=== PATIENT | male | born 1940 | race Two or more races ===

== ENCOUNTER 2019-02-27 02:30 | Emergency (ER) | payer OTHER ==
[~2019-02-27] VITALS: Ht 167.6 cm; Wt 99.8 kg
[2019-02-27] MEDS ORDERED: cloNIDine HCL 0.1 MG TAB ONE (02:40)
[2019-02-27] MEDS ORDERED: cloNIDine HCL 0.1 MG TAB PO ONE (02:45)
[2019-02-27] MEDS ORDERED: LIDOCAINE 2% (LOCAL ANESTH.) PF 5ml SDV ONE (08:12)
[2019-02-27] MEDS ORDERED: TETANUS-DIPTH-ACEL PERTUSSIS 0.5ML SYRG IM ONE (08:30)
[2019-02-27] MEDS ORDERED: LIDOCAINE 2%HCL (LOCAL ANESTH.) INJ 10ml MDV IJ ONE (08:30)
[2019-02-27] MEDS ORDERED: BACITRACIN TOP OINT 1 UD PKG TOP ONE (08:45)
[2019-02-27 10:00] VITALS: BP 146/74
== END 2019-02-27 10:40 | disposition home or self-care (01) ==
LOC: ER 02:33
DX: S01.81XA Laceration without foreign body of other part of head, initial encounter (principal); S61.210A Laceration without foreign body of right index finger without damage to nail, initial encounter; E11.9 Type 2 diabetes mellitus without complications; K21.9 Gastro-esophageal reflux disease without esophagitis; I10 Essential (primary) hypertension; W01.0XXA Fall on same level from slipping, tripping and stumbling without subsequent striking against object, initial encounter; Y93.89 Activity, other specified; Y92.89 Other specified places as the place of occurrence of the external cause; Y99.8 Other external cause status
CPT/HCPCS: 12013; 70450; 72125; 90471; 90715; 99284; J2001

== ENCOUNTER 2019-04-08 05:54 | Emergency (ER) | payer OTHER ==
[~2019-04-08] VITALS: Ht 167.6 cm; Wt 99.8 kg
[2019-04-08] MEDS ORDERED: LIDOCAINE W/ EPINEPHRINE 1% 20ML VIAL ONE (06:04)
[2019-04-08] MEDS ORDERED: NEOMYCIN-BACITRACIN-POLYM UNITDOSE PKG TOP OINT TOP ONE (07:00)
[2019-04-08 07:44] LABS: Basophils # (auto) 0 uL; Basophils % (auto) 0.8 % (0.0-2.0); Eosinophils # (auto) 0.3 uL; Eosinophils % (auto) 5.9 % (0.0-7.0); Hematocrit 38.2 % (41.0-53.0); Hemoglobin 12.7 g/dL (13.5-17.5); Lymphocytes # (auto) 0.6 uL; Lymphocytes % (auto) 11.8 % (10.0-50.0); Mean Corpuscular Hemoglobin 29.8 pg (28.0-32.0); Mean Corpuscular Hgb Conc. 33.3 g/dL (32.0-36.0); Mean Corpuscular Volume 89.5 fL (80.0-100.0); Monocytes # (auto) 0.4 uL; Monocytes % (auto) 8.1 % (0.0-12.0); Neutrophils # (auto) 3.9 uL; Neutrophils % (auto) 73.4 % (37.0-80.0); Nucleated Red Blood Cells % 0.1 %; Platelet Count (auto) 143 10^3/uL (140-450); Red Blood Cells 4.27 10^6/uL (4.5-5.90); Red Cell Distribution Width 14.5 % (11.8-14.3); White Blood Cell 5.3 10^3/uL (4.4-10.8)
[2019-04-08 08:02] LABS: INR 1.07 (0.9-1.15); Partial Thromboplastin Time 27.9 sec (23.64-32.05)
[2019-04-08 08:23] VITALS: BP 148/81
== END 2019-04-08 09:13 | disposition home or self-care (01) ==
LOC: ER 05:54
DX: S01.01XA Laceration without foreign body of scalp, initial encounter (principal); J32.0 Chronic maxillary sinusitis; M54.12 Radiculopathy, cervical region; E11.9 Type 2 diabetes mellitus without complications; K21.9 Gastro-esophageal reflux disease without esophagitis; I10 Essential (primary) hypertension; W03.XXXA Other fall on same level due to collision with another person, initial encounter; Y93.89 Activity, other specified; Y92.89 Other specified places as the place of occurrence of the external cause; Y99.8 Other external cause status
CPT/HCPCS: 12002; 36415; 70450; 72125; 73060; 82962; 85025; 85610; 85730

== ENCOUNTER 2019-06-06 12:06 | Emergency (ER) | payer OTHER ==
[~2019-06-06] VITALS: Ht 167.6 cm; Wt 102.1 kg
[2019-06-06 12:20] VITALS: BP 139/73
== END 2019-06-06 14:53 | disposition left against medical advice (07) ==
LOC: ER 12:06
DX: R07.89 Other chest pain (principal); Z53.21 Procedure and treatment not carried out due to patient leaving prior to being seen by health care provider
CPT/HCPCS: 71046